=== PATIENT | male | born 1980 | race Caucasian/White ===

== ENCOUNTER 2018-05-20 18:22 | Emergency (ER) | payer MEDICAID ==
[~2018-05-20] VITALS: Ht 175.3 cm; Wt 70.3 kg
[2018-05-20] MEDS ORDERED: Bactrim Ds Tab1 EACH PO (18:37)
[2018-05-20] MEDS ORDERED: CEPH500 PO (18:37)
== END 2018-05-20 18:59 | disposition home or self-care (01) ==
LOC: ER 18:22
DX: L03.114 Cellulitis of left upper limb (principal); L03.116 Cellulitis of left lower limb; Z79.899 Other long term (current) drug therapy; F17.200 Nicotine dependence, unspecified, uncomplicated
CPT/HCPCS: 99283